=== PATIENT | female | born 1960 | race Caucasian/White ===

== ENCOUNTER → 2016-12-27 | Outpatient (CLI) | payer OTHER | LOC: CIMAGING 12:57 | PROVIDERS: ATTEND Family Medicine | DX: J40 Bronchitis, not specified as acute or chronic (principal) | CPT/HCPCS: 71020-PO ==

== ENCOUNTER 2017-02-15 18:30 | Emergency (ER) | payer OTHER ==
[2017-02-15] MEDS ORDERED: HALOPERIDOL LACT 5 MG/ML INJ ONE (19:07)
[2017-02-15] MEDS ORDERED: NS 1,000 ML IV ONE (19:16)
[2017-02-15] MEDS ORDERED: HALOPERIDOL LACT 5 MG/ML INJ IVP ONE (19:16)
[2017-02-15 19:21] LABS: % IMMATURE GRANULYOCYTES 0.9 % (0.0-1.1); ABSOLUTE IMMATURE GRANULOCYTES 0.09 10^3/uL (0.00-0.10); ADD DIFF? NO; ADD MORPH? NO; ADD SCAN? NO; ATYPICAL LYMPHOCYTE FLAG 0 (0-99); FRAGMENT RBC FLAG 0 (0-99); HEMATOCRIT 44.9 % (38.0-47.0); HEMOGLOBIN 15.4 g/dL (12.6-16.3); LEFT SHIFT FLG 0 (0-99); LIPEMIA HEMOLYSIS FLAG 90 (0-99); MEAN CELL HEMOGLOBIN 31.8 pg (27.9-34.1); MEAN CELL HEMOGLOBIN CONCENTR. 34.3 g/dL (32.4-36.7); MEAN CELL VOLUME 92.8 fL (81.5-99.8); MEAN PLATELET VOLUME 10.5 fL (8.7-11.7); PLATELET CLUMPS FLAG 10 (0-99); PLATELET COUNT 227 10^3/uL (150-400); RED BLOOD CELL COUNT 4.84 10^6/uL (4.18-5.33); RED CELL DISTRIBUTION WIDTH 13.2 % (11.5-15.2)
--- NOTE | 2017-02-15 19:21 | EDPHY ---
H & P Stated Complaint: Vomiting since yesterday . had celiac plexus block for chronic abd pain., Time Seen by Provider: 02/15/17 18:46 HPI/ROS: CHIEF COMPLAINT: Nausea and vomiting History by patient HISTORY OF PRESENT ILLNESS: 56-year-old woman with a history of primary sclerosing cholangitis and chronic abdominal pain presents complaining of nausea and vomiting for the last 24 hours since she had a celiac ganglion nerve block for her chronic pain yesterday. Patient states that she was doing well immediately after the procedure but then developed a headache last night and then began vomiting has been unable to keep down any food or fluids since then despite using both Zofran and scopolamine at home. She denies any diarrhea. Her abdominal pain is about at its usual state. She denies any fever chills. She denies any urinary symptoms. She has had a prior celiac ganglion nerve block with minimal effect on her abdominal pain but no nausea and vomiting at that time. She says she has had pancreatitis in the past. She is followed by a primary care physician, business office technician and pain specialist. Patient states that she was told by her pain specialist 3 days ago that her oxygen levels were low and that she would probably need to go on oxygen. She has also had an evaluation for sleep apnea in the past but does not know the results thinks that this may also be a problem. She denies any shortness of breath. She says she has bronchitis about a week ago for which she took a Z-Asher and the symptoms all resolved. She denies any difficulty breathing or chest pain. She is currently using to 100 mcg fentanyl patches and she is also on methadone. REVIEW OF SYSTEMS: As in HPI, and all other systems reviewed and are negative Source: Patient - Personal History Current Tetanus Diphtheria and Acellular Pertussis (TDAP): Yes Tetanus Vaccine Date: 2010 - Medical/Surgical History Other PMH: Chronic pain. chronic abd pain. Gallbladder. ERCP x 2 - Social History Smoking Status: Former smoker - Physical Exam Exam: General Appearance: Alert, pale, nontoxic-appearing. Eyes: Pupils equal and round no pallor or injection. ENT, Mouth: Mucous membranes moist. Respiratory: Normal, effort, There are no retractions, lungs are clear to auscultation. Cardiovascular: Regular rate and rhythm. Gastrointestinal: Abdomen is soft and nontender, no masses, bowel sounds normal. Back: No CVA tenderness Neurological: Awake, alert and oriented x 3, no pronator drift, normal gait, no pronator drift Skin: Warm and dry, no rashes. Musculoskeletal: Neck is supple nontender. Extremities are symmetrical, full range of motion. Psychiatric: Patient has normal affect, there is no agitation. Constitutional: Initial Vital Signs Temperature (C) 36.8 C 02/15/17 18:30 Heart Rate 72 02/15/17 18:30 Respiratory Rate 18 02/15/17 18:30 Blood Pressure 151/90 H 02/15/17 18:30 O2 Sat (%) 85 L 02/15/17 18:30 O2 Delivery Mode Nasal Cannula Allergies/Adverse Reactions: Cephalosporins Allergy (Intermediate, Verified 02/15/17 18:54) Rash ketorolac Allergy (Intermediate, Verified 02/15/17 18:54) Other-Enter Comments adhesive tape Allergy (Mild, Verified 02/15/17 18:54) skin welps diazepam [From Valium] Allergy (Mild, Verified 02/15/17 18:54) spasms erythromycin base [Erythromycin Base] Allergy (Mild, Verified 02/15/17 18:54) GI ketamine Allergy (Verified 02/15/17 18:55) shellfish derived Allergy (Verified 02/15/17 18:54) Sulfa (Sulfonamide Antibiotics) Allergy (Verified 02/15/17 18:54) topiramate [From Topamax] Allergy (Verified 02/15/17 18:54) Home Medications: Medication Instructions Recorded Hydrochlorothiazide 02/15/17 Ibandronate Sodium 02/15/17 LIPASE/PROTEASE/AMYLASE 02/15/17 Levothyroxine 02/15/17 Lidocaine 5% [Lidoderm 5% Patch 02/15/17 (*)] Linzess 02/15/17 Lunesta 02/15/17 Methadone HCl 02/15/17 Ondansetron HCl 8 mg BID 02/15/17 Promethazine HCl 02/15/17 Scopolamine 02/15/17 Vitamin D3 02/15/17 fentaNYL [Duragesic 100 MCG Patch 200 mcg TD Q48H 02/15/17 (*)] Medical Decision Making - Diagnostics Imaging Results: Imaging Impressions Abdomen X-Ray 02/15/17 19:17 Impression: 1. Mild diskoid atelectasis at both lower lobes. 2. Moderate constipation. No evidence for small bowel obstruction. Imaging: I viewed and interpreted images myself ED Course/Re-evaluation: 56-year-old woman with history of chronic abdominal pain and primary sclerosing cholangitis presents complaining of persistent nausea and vomiting after celiac ganglion plexus block yesterday. Patient's blood pressure and heart rate are within normal limits. X-rays showed no evidence of free air under the diaphragm or pneumonia. Labs are notable only for elevated liver enzymes which patient states have been longstanding and for which she is currently in a clinical trial. Patient was given a L of IV normal saline and 2.5 mg of Haldol after which her nausea and vomiting improved. Patient was noted to have low oxygen saturation which patient states has been going on it has been previously noticed by her pain specialist. There is also concern that the patient may have sleep apnea. When the patient is told to take deep breaths her oxygen sats improve into the 90s. I suspect her low saturations may be related to her heavy opiate use. We discussed this and I recommend she discuss tapering off of her high dose with her primary care physician in her pain physician. I also strongly urging her to see her primary care physician to discuss results of her sleep test as CPAP may be beneficial. The patient's acute problem nausea vomiting has improved and she feels she is at baseline and wants to go home. Patient was therefore discharged home in stable condition with instructions to follow up a as soon as possible with her primary care physician. - Data Points Laboratory Results: Laboratory Results 02/15/17 19:10 02/15/17 19:10 02/15/17 02/15/17 02/15/17 20:25 19:10 19:10 WBC 9.55 10^3/uL H 10^3/uL (3.80-9.50) RBC 4.84 10^6/uL 10^6/uL (4.18-5.33) Hgb 15.4 g/dL g/dL (12.6-16.3) Hct 44.9 % % (38.0-47.0) MCV 92.8 fL fL (81.5-99.8) MCH 31.8 pg pg (27.9-34.1) MCHC 34.3 g/dL g/dL (32.4-36.7) RDW 13.2 % % (11.5-15.2) Plt Count 227 10^3/uL 10^3/uL (150-400) MPV 10.5 fL fL (8.7-11.7) Neut % (Auto) 72.5 % % (39.3-74.2) Lymph % (Auto) 19.0 % % (15.0-45.0) [place] % (Auto) 7.4 % % (4.5-13.0) Eos % (Auto) 0.0 % L % (0.6-7.6) Baso % (Auto) 0.2 % L % (0.3-1.7) Nucleat RBC Rel Count 0.0 % % (0.0-0.2) Absolute Neuts (auto) 6.92 10^3/uL H 10^3/uL (1.70-6.50) Absolute Lymphs (auto) 1.81 10^3/uL 10^3/uL (1.00-3.00) Absolute Monos (auto) 0.71 10^3/uL 10^3/uL (0.30-0.80) Absolute Eos (auto) 0.00 10^3/uL L 10^3/uL (0.03-0.40) Absolute Basos (auto) 0.02 10^3/uL 10^3/uL (0.02-0.10) Absolute Nucleated RBC 0.00 10^3/uL 10^3/uL (0-0.01) Immature Gran % 0.9 % % (0.0-1.1) Immature Gran # 0.09 10^3/uL 10^3/uL (0.00-0.10) Sodium 134 mEq/L mEq/L (134-144) Potassium 3.8 mEq/L mEq/L (3.5-5.2) Chloride 88 mEq/L L mEq/L (97-110) Carbon Dioxide 31 mEq/l mEq/l (22-31) Anion Gap 15 mEq/L mEq/L (8-16) BUN 12 mg/dL mg/dL (7-23) Creatinine 0.7 mg/dL mg/dL (0.6-1.0) Estimated GFR > 60 Glucose 113 mg/dL H mg/dL (70-100) Calcium 10.0 mg/dL mg/dL (8.5-10.4) Total Bilirubin 0.9 mg/dL mg/dL (0.1-1.4) Conjugated Bilirubin 0.4 mg/dL mg/dL (0.0-0.5) Unconjugated Bilirubin 0.5 mg/dL mg/dL (0.0-1.1) AST 89 IU/L H IU/L (14-46) ALT 136 IU/L H IU/L (9-52) Alkaline Phosphatase 205 IU/L H IU/L (38-126) Total Protein 8.4 g/dL H g/dL (6.3-8.2) Albumin 4.7 g/dL g/dL (3.5-5.0) Lipase 134.0 IU/L IU/L (23-300) Urine Color YELLOW Urine Appearance HAZY Urine pH 6.5 (5.0-7.5) Ur Specific [place] 1.015 (1.002-1.030) Urine Protein TRACE H (NEGATIVE) Urine Ketones NEGATIVE (NEGATIVE) Urine Blood 1+ H (NEGATIVE) Urine Nitrate NEGATIVE (NEGATIVE) Urine Bilirubin NEGATIVE (NEGATIVE) Urine Urobilinogen 1.0 EU EU (0.2-1.0) Ur Leukocyte Esterase NEGATIVE (NEGATIVE) Urine RBC 5-10 /hpf H /hpf (0-3) Urine WBC OCCASIONAL /hpf /hpf (0-3) Ur Epithelial Cells 3+ /lpf H /lpf (NONE-1+) Urine Bacteria 1+ /hpf H /hpf (NONE SEEN) Hyaline Casts OCCASIONAL /lpf /lpf (0-1) Urine Mucus 2+ /lpf H /lpf (NONE-1+) Urine Glucose NEGATIVE (NEGATIVE) Medications Given: Discontinued Medications Haloperidol Lactate (Haldol Injection) 2.5 mg IVP EDNOW ONE Stop: 02/15/17 19:17 Last Admin: 02/15/17 19:17 Dose: 2.5 mg Sodium Chloride (Ns) 1,000 mls @ 0 mls/hr IV ONCE ONE PRN Reason: Wide Open Stop: 02/15/17 19:17 Last Admin: 02/15/17 19:18 Dose: 1,000 mls Departure - Departure Disposition: Home, Routine, Self-Care Clinical Impression: Nausea and vomiting in adult patient, Dehydration, mild Condition: Fair Instructions: Acute Nausea and Vomiting (ED) Additional Instructions: You were seen by Dr. Florence Burton today. Return for any worsening or new concerns. Take your Zofran and scopolamine as needed if nausea and vomiting return. Please see your primary care physician as soon as possible to discuss the need for CPAP as well as tapering off your high doses of opiate pain medicines as this may be contributing to your low oxygen. Referrals: Patricia Weeks MD [Primary Care Provider] - As per Instructions
[2017-02-15 19:35] LABS: ALANINE AMINOTRANSFERASE 136 IU/L (9-52); ALBUMIN 4.7 g/dL (3.5-5.0); ALKALINE PHOSPHATASE 205 IU/L (38-126); ANION GAP 15 mEq/L (8-16); ASPARTATE AMINOTRANSFERASE 89 IU/L (14-46); BILIRUBIN,TOTAL 0.9 mg/dL (0.1-1.4); BILIRUBIN-CONJUGATED 0.4 mg/dL (0.0-0.5); BILIRUBIN-UNCONJUGATED 0.5 mg/dL (0.0-1.1); CARBON DIOXIDE 31 mEq/l (22-31); CHLORIDE 88 mEq/L (97-110); CREATININE 0.7 mg/dL (0.6-1.0); GLOMERULAR FILTRATION RATE > 60; GLUCOSE 113 mg/dL (70-100); POTASSIUM 3.8 mEq/L (3.5-5.2); SODIUM 134 mEq/L (134-144); TOTAL PROTEIN 8.4 g/dL (6.3-8.2)
[2017-02-15 20:31] LABS: COLOR YELLOW; LEUKOCYTE ESTERASE,URINE NEGATIVE (NEGATIVE); NITRITE,URINE NEGATIVE (NEGATIVE); PH,URINE 6.5 (5.0-7.5)
[2017-02-15 20:37] LABS: BACTERIA 1+ /hpf (NONE SEEN); HYALINE CASTS OCCASIONAL /lpf (0-1); MUCUS 2+ /lpf (NONE-1+); WBC,URINE OCCASIONAL /hpf (0-3)
[2017-02-15 20:45] VITALS: BP 126/94; PULSE 80; RESP 96; TEMP 98.4; O2SAT 3
== END 2017-02-15 20:53 | disposition home or self-care (01) ==
LOC: CED 18:30
DX: E86.0 Dehydration (principal); Z87.891 Personal history of nicotine dependence
CPT/HCPCS: 74022-PO; 80048-PO; 80076-PO; 81003-PO; 81015-PO; 83690-PO; 85025-PO; 96374

== ENCOUNTER → 2017-03-19 | Outpatient (CLI) | payer OTHER | LOC: FCPNEURO 21:00 | PROVIDERS: ATTEND Psychiatry & Neurology Sleep Medicine | DX: G47.33 Obstructive sleep apnea (adult) (pediatric) (principal); G47.31 Primary central sleep apnea; G47.34 Idiopathic sleep related nonobstructive alveolar hypoventilation ==

== ENCOUNTER → 2017-09-30 | Outpatient (CLI) | payer OTHER | LOC: CIMAGING 11:00 | PROVIDERS: ATTEND Family Medicine | DX: Z12.31 Encounter for screening mammogram for malignant neoplasm of breast (principal); Z80.3 Family history of malignant neoplasm of breast ==

== ENCOUNTER → 2017-10-06 | Outpatient (CLI) | payer OTHER | LOC: CIMAGING 13:29 | PROVIDERS: ATTEND Family Medicine | DX: R92.8 Other abnormal and inconclusive findings on diagnostic imaging of breast (principal) | CPT/HCPCS: 76641-PO ==

== ENCOUNTER 2017-11-06 12:41 | Emergency (ER) | payer OTHER ==
--- NOTE | 2017-11-06 12:48 | EDPHY ---
H & P Time Seen by Provider: 11/06/17 12:48 - Personal History Tetanus Vaccine Date: 2010 - Medical/Surgical History Other PMH: Chronic pain. chronic abd pain. Gallbladder. ERCP x 2 - Social History Smoking Status: Former smoker Constitutional: Initial Vital Signs Temperature (C) 36.8 C 11/06/17 12:43 Heart Rate 73 11/06/17 12:43 Respiratory Rate 18 11/06/17 12:43 Blood Pressure 157/74 H 11/06/17 12:43 O2 Sat (%) 87 L 11/06/17 12:43 O2 Delivery Mode Room Air O2 (L/minute) 2 Allergies/Adverse Reactions: Cephalosporins Allergy (Intermediate, Verified 11/06/17 12:51) Rash ketorolac Allergy (Intermediate, Verified 11/06/17 12:51) Other-Enter Comments adhesive tape Allergy (Mild, Verified 11/06/17 12:51) skin welps diazepam [From Valium] Allergy (Mild, Verified 11/06/17 12:51) spasms erythromycin base [Erythromycin Base] Allergy (Mild, Verified 11/06/17 12:51) GI shellfish derived Allergy (Verified 11/06/17 12:51) Sulfa (Sulfonamide Antibiotics) Allergy (Verified 11/06/17 12:51) topiramate [From Topamax] Allergy (Verified 11/06/17 12:51) Home Medications: Medication Instructions Recorded Hydrochlorothiazide 02/15/17 Ibandronate Sodium 02/15/17 Levothyroxine 02/15/17 Lidocaine 5% [Lidoderm 5% Patch] 02/15/17 Methadone HCl 02/15/17 Ondansetron HCl 8 mg BID 02/15/17 Scopolamine 02/15/17 fentaNYL [Duragesic 100 MCG Patch 200 mcg TD Q48H 02/15/17 (*)] Amitiza 8 mcg (*) 11/06/17 Boniva 11/06/17 FENTANYL CITRATE 11/06/17 Ketamine 20 mg/2 ml-0.9% NaCl 11/06/17 Medical Decision Making ED Course/Re-evaluation: CHIEF COMPLAINT: Low oxygen saturation HISTORY OF PRESENT ILLNESS: 57-year-old female who was at her pain management physician just prior to arrival. He noticed that when she walked into the office her oxygen saturation was 85-87. She is not O2 dependent. She does use CPAP at night with oxygen. Her oxygen saturation is usually 92-94% according to her. She does not feel short of breath. In fact she does not actually have any symptoms that are different than usual. She has felt a little worse lately with some nausea which her doctors are attributing to her chronic liver disease. Also she has chronic leg pain which appears to be under well control however she does use a cane for walking assistance. She denies fevers or chills. She denies congestion of her chest her sinuses. She denies sore throat. She denies any infectious illness. She has not had any chest pain or chest pressure or chest tightness. She denies any palpitations. She denies any feeling of near-syncope. She is fairly immobile due to her chronic pain. REVIEW OF SYSTEMS: A 10 point review of systems was performed and is negative with the exception of the elements mentioned in the history of present illness. PHYSICAL EXAM: HR, BP, O2 Sat, RR. Temp noted General Appearance: Alert, well hydrated, appropriate, and non-toxic appearing. Head: Atraumatic without scalp tenderness or obvious injury Eyes: Pupils equal, round, reactive to light and accommodation, EOMI, no trauma , no injection. Ears: Clear bilaterally, no perforation, normal landmarks Nose: Atraumatic, no rhinorrhea, clear. Throat: There is no erythema or exudates, no lesions, normal tonsils, mucus membranes moist. Neck: Supple, 2+ carotid upstroke, nontender, no lymphadenopathy. Respiratory: No retractions, no distress, no wheezes, and no accessory muscle use. Lungs are clear to auscultation bilaterally. Cardiovascular: Regular rate and rhythm, no murmurs, rubs, or gallops. Bilateral carotid, radial, dorsalis pedis, and posterior tibial pulses intact. Good capillary refill all extremities. Gastrointestinal: Abdomen is soft, nontender, non-distended, no masses, no rebound, no guarding, no peritoneal signs. Musculoskeletal: Normal active ROM of all extremities, atraumatic. Neurological: Alert, appropriate, and interactive. The patient has normal DTRs and non-focal cranial nerves, motor, sensory, and cerebellar exam. Skin: No rashes, good turgor, no nodules on palpation. Past medical history: Primary sclerosing cholangitis, chronic leg pain Past surgical history: Noncontributory except for pain stimulators or legs Family history: Noncontributory Social history: Single, employed, does not abuse tobacco drugs or alcohol. She is an ex-smoker quit 20 years ago DIAGNOSTICS/PROCEDURES/CRITICAL CARE TIME: Study: CT angiography of the chest Indication: Hypoxemia with exertion with no other symptoms. Significant periods of immobility. Results: CT scan of the chest was obtained. The results of the study are no acute findings to explain exertional hypoxemia. The study was read by the radiologist, Dr. Royce Crowder . I viewed the images myself on the PACS system. DIFFERENTIAL DIAGNOSIS: The differential diagnosis for the patient's hypoxemia included but was not limited to pneumonia, myocardial infarction, acute mountain sickness, high altitude pulmonary edema, congestive heart failure , and pulmonary embolus. MEDICAL DECISION MAKING: This patient has room air oxygen saturations at rest while talking to me in full sentences of 93-95%. She has no evidence of any respiratory difficulties. There are no accessory muscle use, no nasal flaring, speaking in full sentences, and she has no symptoms. She had a measurement when she walked into her pain management physician's office of 85% but I do not have any confirmation that that was an appropriate a normal waveform or not. I have walked the patient here with pulse oximetry and she does drop to about 82 % but once again she is completely asymptomatic and has no idea that her oxygen is dropping. The patient states that she has never had an oxygen saturation test while walking her just after walking and it is plausible that she could always be low or least has been for the last several years since she quit smoking. Laboratory studies are essentially unremarkable except for her chronically elevated alkaline phosphatase and liver enzymes. The CT angiography is pending. This patient is having transient hypoxemia with exertion. It is not clear to me whether she has had that in the past and was just noticed today or this is a new phenomenon since the patient is completely asymptomatic. This patient has a essentially normal CT angiography of her chest. Her laboratory studies are unremarkable except for her chronic alkaline phosphatase and AST elevation. Since she is completely asymptomatic my best guess at this time is that she has intermittent hypoxemia with exertion from her prior smoking history and/or reactive airways disease. She sats in the mid 90s at room air. While she is at rest. I will send her home to follow up with her primary care physician. - Data Points Laboratory Results: Laboratory Results 11/06/17 13:20 11/06/17 13:20 11/06/17 11/06/17 11/06/17 13:20 13:20 13:20 WBC 7.51 10^3/uL 10^3/uL (3.80-9.50) RBC 4.18 10^6/uL 10^6/uL (4.18-5.33) Hgb 12.9 g/dL g/dL (12.6-16.3) Hct 39.2 % % (38.0-47.0) MCV 93.8 fL fL (81.5-99.8) MCH 30.9 pg pg (27.9-34.1) MCHC 32.9 g/dL g/dL (32.4-36.7) RDW 13.4 % % (11.5-15.2) Plt Count 215 10^3/uL 10^3/uL (150-400) MPV 10.3 fL fL (8.7-11.7) Neut % (Auto) 56.1 % % (39.3-74.2) Lymph % (Auto) 32.8 % % (15.0-45.0) [place] % (Auto) 7.7 % % (4.5-13.0) Eos % (Auto) 2.8 % % (0.6-7.6) Baso % (Auto) 0.3 % % (0.3-1.7) Nucleat RBC Rel Count 0.0 % % (0.0-0.2) Absolute Neuts (auto) 4.22 10^3/uL 10^3/uL (1.70-6.50) Absolute Lymphs (auto) 2.46 10^3/uL 10^3/uL (1.00-3.00) Absolute Monos (auto) 0.58 10^3/uL 10^3/uL (0.30-0.80) Absolute Eos (auto) 0.21 10^3/uL 10^3/uL (0.03-0.40) Absolute Basos (auto) 0.02 10^3/uL 10^3/uL (0.02-0.10) Absolute Nucleated RBC 0.00 10^3/uL 10^3/uL (0-0.01) Immature Gran % 0.3 % % (0.0-1.1) Immature Gran # 0.02 10^3/uL 10^3/uL (0.00-0.10) PT 11.9 SEC L SEC (12.0-15.0) INR 0.88 (0.83-1.16) APTT 29.7 SEC SEC (23.0-38.0) Sodium 140 mEq/L mEq/L (135-145) Potassium 4.8 mEq/L mEq/L (3.5-5.2) Chloride 101 mEq/L mEq/L (97-110) Carbon Dioxide 31 mEq/l mEq/l (22-31) Anion Gap 8 mEq/L mEq/L (8-16) BUN 21 mg/dL mg/dL (7-23) Creatinine 0.6 mg/dL mg/dL (0.6-1.0) Estimated GFR > 60 Glucose 91 mg/dL mg/dL (70-100) Calcium 10.4 mg/dL mg/dL (8.5-10.4) Total Bilirubin 0.5 mg/dL mg/dL (0.1-1.4) Conjugated Bilirubin 0.4 mg/dL mg/dL (0.0-0.5) Unconjugated Bilirubin 0.1 mg/dL mg/dL (0.0-1.1) AST 41 IU/L IU/L (14-46) ALT 73 IU/L H IU/L (9-52) Alkaline Phosphatase 193 IU/L H IU/L (38-126) Troponin I < 0.012 ng/mL ng/mL (0.000-0.034) NT-Pro-B Natriuret Pep 32 pg/mL pg/mL (0-125) Total Protein 7.9 g/dL g/dL (6.3-8.2) Albumin 4.0 g/dL g/dL (3.5-5.0) Lipase 146 IU/L IU/L (23-300) Departure - Departure Disposition: Home, Routine, Self-Care Clinical Impression: Exercise hypoxemia Condition: Good Instructions: Using Oxygen at Home (ED), Hypoxemia (DC) Referrals: CARMITA LI [Primary Care Provider] - 2-3 days without fail
[2017-11-06] MEDS ORDERED: IOPAMIDOL (ISOVUE 370) 100 ML BTL IV ONE (13:19)
[2017-11-06 13:32] LABS: PLATELET COUNT 215 10^3/uL (150-400)
[2017-11-06 14:04] LABS: INR 0.88 (0.83-1.16); PROTIME(PATIENT) 11.9 SEC (12.0-15.0)
[2017-11-06 15:32] VITALS: BP 138/76; PULSE 60; RESP 16; TEMP 97.9; O2SAT 99
== END 2017-11-06 15:42 | disposition home or self-care (01) ==
LOC: CED 12:41
DX: R09.02 Hypoxemia (principal); Z87.891 Personal history of nicotine dependence
CPT/HCPCS: 71275; 99285; Q9967; 80048-PO; 80076-PO; 83690-PO; 83880-PO; 84484-PO; 85025-PO; 85610-PO; 85730-PO

== ENCOUNTER → 2018-07-21 | Outpatient (CLI) | payer OTHER | LOC: CIMAGING 13:25 | PROVIDERS: ATTEND Anesthesiology Pain Medicine | DX: M51.36 Other intervertebral disc degeneration, lumbar region (principal); M41.86 Other forms of scoliosis, lumbar region | CPT/HCPCS: 72100-PO ==

== ENCOUNTER → 2018-07-27 | Outpatient (CLI) | payer OTHER | LOC: FCPNEURO 23:12 | PROVIDERS: ATTEND Psychiatry & Neurology Sleep Medicine | DX: G47.31 Primary central sleep apnea (principal); G47.34 Idiopathic sleep related nonobstructive alveolar hypoventilation ==

== ENCOUNTER → 2018-10-01 | Outpatient (CLI) | payer OTHER | LOC: CIMAGING 10:30 | PROVIDERS: ATTEND Family Medicine | DX: Z12.31 Encounter for screening mammogram for malignant neoplasm of breast (principal) ==